=== PATIENT | male | born 2000 | race Caucasian/White ===

== ENCOUNTER 2020-10-19 19:17 | Emergency (ER) | payer OTHER ==
[~2020-10-19] VITALS: Ht 172.7 cm; Wt 73.0 kg
[2020-10-19] MEDS ORDERED: IBUPROFEN 600MG TABLET PO ONE (20:45)
[2020-10-19] MEDS ORDERED: ACETAMINOPHEN 325MG TABLET PO ONE (21:15)
[2020-10-19] MEDS ORDERED: KETOROLAC 60MG/2ML VIAL IM ONE (21:15)
[2020-10-19 22:38] VITALS: BP 145/85
== END 2020-10-19 22:41 | disposition home or self-care (01) ==
LOC: ER 19:17
DX: S56.892A Other injury of other muscles, fascia and tendons at forearm level, left arm, initial encounter (principal); M79.641 Pain in right hand; V43.52XA Car driver injured in collision with other type car in traffic accident, initial encounter; I10 Essential (primary) hypertension; Y99.0 Civilian activity done for income or pay; V49.49XA Driver injured in collision with other motor vehicles in traffic accident, initial encounter; Y93.89 Activity, other specified; Y92.488 Other paved roadways as the place of occurrence of the external cause
CPT/HCPCS: 73090; 73130; 96372; 99284; J1885